=== PATIENT | female | born 1960 | race American Indian/Alaskan Native ===

== ENCOUNTER 2019-02-22 15:23 | Outpatient (CLI) | payer BC ==
--- NOTE | 2019-02-22 16:06 | XRay Report ---
CHEST 2 VIEWS INDICATION: ANNUAL PHYSICAL EXAM. COMPARISON: None. FINDINGS: Support devices: None. Heart: Normal. Lungs/pleura: Normal. Additional findings: Normal bones and soft tissues. IMPRESSION: Normal chest. Signer Name: Donnell Bass MD Signed: 02/22/2019 4:01 PM Workstation Name: [id number]
== END 2019-02-22 15:24 | disposition home or self-care (01) ==
LOC: SPVIMAG 15:23 → XRAY 15:23 → SPVIMAG 15:24
PROVIDERS: ATTEND Internal Medicine
DX: Z00.00 Encounter for general adult medical examination without abnormal findings (principal)
CPT/HCPCS: 71046